=== PATIENT | male | born 1975 | race Caucasian/White ===

== ENCOUNTER 2019-04-16 12:00 | Outpatient (CLI) | payer OTHER, SELFPAY | END 2019-04-16 12:01 | disposition home or self-care (01) | LOC: SLEEP 04-18 09:11 | PROVIDERS: Visit Provider Internal Medicine | DX: G47.33 Obstructive sleep apnea (adult) (pediatric) (principal) | CPT/HCPCS: G0399 ==

== ENCOUNTER 2019-04-30 10:21 | Day surgery (SDC) | payer OTHER, SELFPAY ==
[2019-04-29 09:29] VITALS: BMI 32.4
--- NOTE | 2019-04-30 10:39 | ANES.PREANE2 ---
Pre-Anesthetic Assessment Pre-Anesthetic Assessment: Height/Weight: Height 1.7 m Weight 93.894 kg Preop Diagnosis: Anorectal pain Proposed Procedure: Operation Date: 04/30/19 11:45 Proposed Procedures p Colonoscopy 50682 Z12.11(Not Applicable) - Richard Torres MD Last Intake: 20:00 Social: Packs per day: 1.5 Pack years: 50+ Exam: Pre-Anes Outpt Exam: alert, oriented x 3, clear to auscultation bilaterally and regular rate & rhythm Airway: Submandibular: WNL Cervical ROM: WNL MP: 1 Additional comments: very poor Pulmonary: Comments: SOB CV/HEM: CV/HEM: HTN Comments: borderline : Comments: frequency GI: GI: GERD Musc/skel: Musc/skel: Lower Back Pain Comments: left radiculopathy Neuropsych: Neuropsych: Depression and [place] Comments: migraine +today Anesthetic Plan: ASA status: III Anesthesia: MAC PFSH Anesthesia PFSH: Social History Smoking and tobacco status: current every day smoker cigarettes Packs smoked per day: 1 Second hand smoke exposure: Yes Alcohol intake: never Adopted: No Caregiver/support person: No Lives independently: Yes Household members: spouse Marital status: Current occupational status: employed History of recent travel: No Data Anesthesia Cardiac Studies: No Data to Display
[2019-04-30 11:11] VITALS: BP 124/87; PULSE 62; RESP 18; TEMP 36.4; O2SAT 97
[2019-04-30] MEDS: sodium chloride 0.9% 1,000 ML 30 ML (11:16)
--- NOTE | 2019-04-30 11:28 | PM.HPUD ---
H&P update H&P Update: DATE OF SURGERY/PROCEDURE: 04/30/19 DATE H&P PERFORMED: 04/23/19 H&P UPDATE INFORMATION: H&P completed within last 30 days and No changes to prior documentation PREOP DIAGNOSIS: Anorectal pain PLANNED PROCEDURE: Operation Date: 04/30/19 11:45 Proposed Procedures p Colonoscopy 71565 Z12.11(Not Applicable) - Richard Torres MD Full H&P Perinent History: Medical/Surgical History: Medical History (Updated 04/24/19 @ 17:03 by Richard Torres MD) Depression (Acute) Migraines (Acute) Screen for colon cancer (Acute) Family History: Family History (Updated 04/22/19 @ 09:38 by Lexi Gray RN) Father Hyperlipidemia Hypertension Grandfather Diabetes Hypertension Stroke Denies family history of Anesthesia complication Bleeding disorder Social History: Social History Smoking and tobacco status: current every day smoker cigarettes Packs smoked per day: 1 Second hand smoke exposure: Yes Alcohol intake: never Adopted: No Caregiver/support person: No Lives independently: Yes Household members: spouse Marital status: Current occupational status: employed History of recent travel: No
[2019-04-30 13:15] VITALS: BP 105/63; PULSE 70; RESP 16; TEMP 36.8; O2SAT 95
[2019-04-30 13:26] VITALS: BP 111/65; PULSE 63; RESP 18; O2SAT 97
--- NOTE | 2019-04-30 13:28 | ANE.PACU2 ---
 Inpatient post-anesthesia follow up: Airway intact: Yes Vital signs: Temperature 98.2 F Pulse Rate 63 Respiratory Rate 18 Blood Pressure 111/65 Pulse Oximetry 97 Oxygen Delivery Me thod Room Air Oxygen Flow Rate 3.0 Fraction of Inspir ed Oxygen Hydration adequate: Yes Nausea and vomiting: No Pain level: 1 Mental status: Baseline
== END 2019-04-30 13:45 | disposition home or self-care (01) ==
PROVIDERS: PCP Internal Medicine; Visit Provider Surgery
PROC: 0DJD8ZZ Inspection of Lower Intestinal Tract, Via Natural or Artificial Opening Endoscopic (ICD-10-PCS; CPT 45378; principal; 2019-04-30 11:45)
DX: K62.89 Other specified diseases of anus and rectum (principal); D12.8 Benign neoplasm of rectum; K57.30 Diverticulosis of large intestine without perforation or abscess without bleeding; Z82.49 Family history of ischemic heart disease and other diseases of the circulatory system; Z83.3 Family history of diabetes mellitus; Z79.82 Long term (current) use of aspirin; F17.210 Nicotine dependence, cigarettes, uncomplicated; I10 Essential (primary) hypertension; K21.9 Gastro-esophageal reflux disease without esophagitis
CPT/HCPCS: 12345; 45380; 88305; J2704; J7030

== ENCOUNTER 2019-08-05 20:00 | Outpatient (CLI) | payer OTHER, SELFPAY | END 2019-08-05 20:01 | disposition home or self-care (01) | LOC: SLEEP 08-06 13:11 | PROVIDERS: PCP Internal Medicine; Visit Provider Nurse Practitioner Family | DX: G47.33 Obstructive sleep apnea (adult) (pediatric) (principal) | CPT/HCPCS: 95810; 95811 ==

== ENCOUNTER 2020-01-14 15:29 | Outpatient (CLI) | payer OTHER, SELFPAY ==
--- NOTE | 2020-01-14 15:45 | XR_ITS ---
WS: [id number] CHEST 2 VIEWS HISTORY: HEMOPTYSIS COMPARISON: 12/11/2018 Lungs: Benign granuloma LEFT lung base. No pneumonia. Normal vasculature. Focal area of scar or atele ctasis at the lingula. On the lateral projection is a 6 mm nodule in the retrosternal airspace. Cardiac size: Normal. Mediastinum/Aorta: Normal mediastinum. Bones: Normal. XR/XR chest 2V* [id number] IMPRESSION: 1. 6 mm nodule seen in the retrosternal airspace on the lateral projection. Re commend follow-up chest CT with IV contrast to exclude pulmonary nodule. 2. Subsegmental linear atelectasis or scar at the lingula.
== END 2020-01-14 15:30 | disposition home or self-care (01) ==
PROVIDERS: PCP Internal Medicine; Visit Provider Internal Medicine
DX: R04.2 Hemoptysis (principal)
CPT/HCPCS: 71046

== ENCOUNTER 2020-01-20 10:04 | Outpatient (CLI) | payer OTHER, SELFPAY ==
--- NOTE | 2020-01-20 10:08 | CT_ITS ---
WS: [id number] CT CHEST TECHNIQUE: Contrast enhanced CT of the chest with coronal and sagittal reformatted images. CLINICAL INFORMATION: LUNG NODULE COMPARISON: Radiograph January 14, 2020 DLP: 943.[address] scans at [facility] use at least one of these dose optimization techniques: automat ed exposure control; mA and/or kV adjustment per patient size (includes targeted exams where dose is matched to clinical indication); or iterative reconstruction. FINDINGS: Calcified granuloma corresponds to the anterior substernal opacity seen on the chest radiograph. Antonio tional calcified granulomas in both lungs. Mild chronic emphysematous changes. No acute pulmonary inf iltrates. 3 mm noncalcified nodule in the super segment left lower lobe. 2 additional tiny noncalcified nodules in the right upper lobe anteriorly measuring 2 to 3 mm. Slight atelectasis in the lung bases. No mediastinal or hilar lymphadenopathy. No axillary lymphadenopathy. Mild diffuse fatty infiltration of the liver. Tiny hepatic cyst in the dome of the liver. Normal GE j unction. Adrenal glands are normal. Normal visualized thoracic spine. CT/CT chest w con* [id number] IMPRESSION: 1. Calcified granuloma corresponds to the opacity seen on the radiograph subst ernal location. 2. A few tiny noncalcified nodules in both lungs described above. Recommend 12 month follow-up. Largest measures approximately 3 mm. 3. No mediastinal or hilar lymphadenopathy. 4. Mild diffuse fatty infiltration of the liver.
[2020-01-20] MEDS: iohexol 300 mg/mL 100 mL Btl IV (10:54)
== END 2020-01-20 10:05 | disposition home or self-care (01) ==
LOC: RADWPI 10:06
PROVIDERS: Family Provider Internal Medicine; PCP Internal Medicine; Visit Provider Nurse Practitioner Family
DX: R91.8 Other nonspecific abnormal finding of lung field (principal); K76.0 Fatty (change of) liver, not elsewhere classified
CPT/HCPCS: 71260; Q9967

== ENCOUNTER → 2020-09-02 08:10 | Outpatient (BNVA) | payer OTHER, SELFPAY | PROVIDERS: Family Provider Internal Medicine; PCP Internal Medicine; Visit Provider Family Medicine | DX: Z01.812 Encounter for preprocedural laboratory examination (principal); Z20.822 Contact with and (suspected) exposure to COVID-19 | CPT/HCPCS: 87635 ==

== ENCOUNTER 2020-09-08 08:13 | Outpatient (CLI) | payer OTHER, SELFPAY ==
--- NOTE | 2020-09-08 08:53 | PFTS_ITS ---
Date of Study:09/08/20 Date of Dictation: 09/14/20 MECHANICS: Pre bronchodilator Forced vital capacity (FVC) is normal . Pre bronchodilator Forced expiratory volume in one second (FEV1) is normal. FEV1/FVC is normal. There is no post bronchodialator study. FLOW VOLUME LOOP: severe sloping of expiratory limb suggestive of severe airway obstruction . LUNG VOLUMES: Total lung capacity (TLC) is increased . Very high Residual volume (RV) suggestive of severe air trapping. DIFFUSING CAPACITY FOR CARBON MONOXIDE: mildly reduced 31% . INTERPRETATION: The Spirometry is normal but lung volumes are significantly high indirectly suggesting of obstructive ventilatory disease. There is mild gas trasnfer defect. Clinical correlation recommended. MTDD
== END 2020-09-08 08:14 | disposition home or self-care (01) ==
LOC: RT 08:15
PROVIDERS: PCP Family Medicine; Visit Provider Family Medicine
DX: J44.9 Chronic obstructive pulmonary disease, unspecified (principal)
CPT/HCPCS: 94010; 94726; 94729

== ENCOUNTER 2020-10-04 08:10 | Emergency (ER) | payer OTHER, SELFPAY ==
[2020-10-04] VITALS (7 sets, daily range): BP systolic 119–149; BP diastolic 79–98; PULSE 75–102; RESP 14–19; TEMP 36.8; O2SAT 95–98; BMI 34.1
--- NOTE | 2020-10-04 | XRR_ITS ---
[facility] Final Radiology Report Call: [phone] assistance Online chat: [email or web address] Name: JOHAN HENNING Age: 45Years M Date: 10/04/2020 SSN: -- : 1975 Study: XR CHEST 2 VIEWS Requesting Physician: Elidia Elias Images: 2 Add?l Studies: Provided Clinical History: PROCEDURE INFORMATION: Exam: XR Chest Exam date and time: 10/04/2020 8:55 AM Age: 45 years old Clinical indication: Shortness of breath; Patient HX: Chest pain, SOB, dizziness starting this morning to now. TECHNIQUE: Imaging protocol: XR of the chest. Views: Frontal and lateral upright, 2 views. COMPARISON: CT chest w con* [id number] 01/20/2020 10:43 AM FINDINGS: Lungs: Right medial upper lobe calcified pulmonary parenchymal granuloma. Mild left lateral basilar subsegmental atelectasis. The lungs are otherwise peripherally clear bilaterally. The pulmonary vasculature is normal. Pleural spaces: No pleural effusion. No pneumothorax. Heart/Mediastinum: The heart is normal in size and contour. Bones/joints: Degenerative disk disease is present at mid-upper thoracic spine disk levels. IMPRESSION: 1. Mild left lateral basilar subsegmental atelectasis. 2. No acute cardiopulmonary abnormality identified. Thank you for allowing us to participate in the care of your patient. Dictated and Authenticated by: Anderson Cassidy MD 10/04/2020 1:20 PM Central Time ([place] & [place]) MERARY
--- NOTE | 2020-10-04 08:27 | ECG_ITS ---
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 Measurements Intervals [place] Rate: 105 P: 59 [place]: 141 QRS: -23 QRSD: 93 T: 42 QT: 337 QTc: 446 Interpretive Statements SINUS TACHYCARDIA INDETERMINATE AXIS Compared to ECG 12/11/2018 11:35:59 Indeterminate axis now present Sinus bradycardia no longer present T-wave abnormality no longer present Electronically Signed On 10-04-2020 18:10:01 CDT by Deep Link M.D. [id number]
[2020-10-04 09:58] LABS: Basophils # 0.1 10^3/uL (0.0-0.1); Basophils % 0.6 %; Eosinophils # 0.2 10^3/uL (0.0-0.8); Eosinophils % 2.5 %; Hemoglobin 14.8 g/dL (11.7-16.6); Lymphocytes # 2.5 10^3/uL (0.8-4.8); Lymphocytes % 30.3 %; Mean Corpuscular HGB Conc 33.6 g/dL (30.0-36.0); Mean Corpuscular Hemoglobin 30.8 pg (28.0-34.0); Mean Corpuscular Volume 91.5 fL (80-94); Mean Platelet Volume 9.5 fL (7.4-10.4); Monocytes # 0.6 10^3/uL (0.2-0.9); Monocytes % 7.3 %; Neutrophils # 4.86 10^3/uL (1.8-7.7); Neutrophils % 58.9 %; Nucleated Red Blood Cells % 0 %; Platelet Count 241 10^3/cmm (130-400); Red Blood Count 4.81 10^6/uL (4.1-5.3); Red Cell Distribution Width 12.2 % (12.1-15.1); White Blood Count 8.3 10^3/uL (4.0-10.0)
[2020-10-04 10:17] LABS: Troponin(5th) Baseline 6 ng/L (0-15)
--- NOTE | 2020-10-04 10:17 | PC.PHAR ---
pt states he takes care of his own medications-[facility] lipitor 10mg from from 07/27/20-pt states he wasnt aware he had that medication called in -pt states he hasnt had lexapro for months-[facility] 30d[facility]s
--- NOTE | 2020-10-04 10:21 | W.ED.CHESTPA ---
HPI - Chest Pain General: Chief Complaint: Chest Pain Stated Complaint: Chest Pain Time Seen by Provider: 10/04/20 09:28 History of Present Illness: HPI narrative: 45-year-old male presents emergency room with left chest pain radiating to his back and arms occurring for last couple of days worse today while he was at work he has associated shortness of breath with it he describes a squeezing type sensation in his chest. MD complaint: chest pain Pertinent past history: coronary artery disease Onset (ago): minute(s) Timing of current episode: episodic Prior episodes: Yes Onset: during rest and during exertion Pain location: left chest Pain radiation: none Severity: mild Quality: heaviness Relieving factors: nothing Exacerbating factors: nothing Associated symptoms: Reports dyspnea and nausea; Deny abdominal pain, diaphoresis, fever(s), leg edema, palpitations, sense of impending doom, syncope or vomiting Treatment prior to arrival: none Review of Systems Const: Denies: fever(s) or diaphoresis ENMT: Denies: throat pain, ear or mastoid pain, nasal discharge or nasal congestion Card: Denies: palpitations or syncope Resp: Reports: dyspnea GI: Reports: nausea; Denies: abdominal pain or vomiting : Denies: flank pain, dysuria, urinary frequency or urinary urgency Skin/Breast: Denies: rash or pruritus PFSH ED PFSH: Medical History (Updated 10/04/20 @ 13:13 by Cody Priest DO) Depression Migraines Screen for colon cancer Surgical History History of hernia surgery left and right groin hernias Family History Father Hyperlipidemia Hypertension Grandfather Diabetes Hypertension Stroke Denies family history of Anesthesia complication Bleeding disorder Social History Smoking and tobacco status: current every day smoker cigarettes Packs smoked per day: 1 Second hand smoke exposure: Yes Alcohol intake: never Adopted: No Caregiver/support person: No Lives independently: Yes Household members: spouse Marital status: Current occupational status: employed History of recent travel: No Physical Exam Const: COMMON NORMALS: no acute distress GENERAL APPEARANCE: cooperative and comfortable ORIENTATION/CONSCIOUSNESS: Yes oriented to person, Yes oriented to place and Yes oriented to time HENMT: COMMON NORMALS: normocephalic, atraumatic, hearing grossly normal bilaterally and external ears normal HEAD & SCALP: normocephalic and atraumatic EXTERNAL EAR: Yes external ears normal Neck/C-Spine: COMMON NORMALS: no JVD Resp: COMMON NORMALS: normal respiratory effort, No retractions, No use of accessory muscles and clear to auscultation bilaterally AUSCULTATION: clear to auscultation bilaterally Cardio: COMMON NORMALS: no JVD, regular rate, regular rhythm and No murmurs present (Cardio) RATE: regular rate RHYTHM: regular rhythm GI: COMMON NORMALS: Soft to palpation and No hepatosplenomegaly present AUSCULTATION: Yes normoactive bowel sounds PALPATION: Yes Soft to palpation, No Tenderness to palpation present (GI), No Guarding due to palpation present (GI) and Yes No hepatosplenomegaly present Extremity: COMMON NORMALS: normal to inspection, capillary refill normal, no clubbing, cyanosis or edema, no calf tenderness and no pedal edema Neuro: SENSORIUM/ORIENTATION: Yes oriented to person, Yes oriented to place and Yes oriented to time Skin: COMMON NORMALS: no rashes or lesions noted GENERAL SKIN EXAM: no rashes or lesions noted Course Vital Signs: Vital signs: Vital Signs Temperature 98.2 F 10/04/20 08:20 Pulse Rate 84 10/04/20 13:28 Respiratory Rate 19 H 10/04/20 13:28 Blood Pressure 149/85 10/04/20 13:28 Pulse Oximetry 96 10/04/20 13:28 MDM - Chest Pain MDM Narrative: Medical decision making narrative: He has had these symptoms for couple of days now. He refers to a previous stress test he had done I am not sure it was actually cardiac but I cannot find 1 in the records here working to set him up for a graded exercise stress test ominous start him on metoprolol 25 once daily its cardioprotective will also should help with lower blood pressure additionally have him take a baby aspirin if he has any recurrence of symptoms return to the emergency room. Patient's will contact him to set up an outpatient stress test Lab Data: Labs: Lab Results 10/04/20 10/04/20 10/04/20 Range/Units 09:45 09:45 09:45 WBC 8.3 (4.0-10.0) 10^3/ uL RBC 4.81 (4.1-5.3) 10^6/u L Hgb 14.8 (11.7-16.6) g/dL Hct 44.0 (42.0-52.0) % MCV 91.5 (80-94) fL MCH 30.8 (28.0-34.0) pg MCHC 33.6 (30.0-36.0) g/dL RDW 12.2 (12.1-15.1) % Plt Count 241 (130-400) 10^3/c mm MPV 9.5 (7.4-10.4) fL Neut % (Auto) 58.9 % Lymph % (Auto) 30.3 % Bonner % (Auto) 7.3 % Eos % (Auto) 2.5 % Baso % (Auto) 0.6 % Neut # (Auto) 4.86 (1.8-7.7) 10^3/u L Lymph # (Auto) 2.5 (0.8-4.8) 10^3/u L Bonner # (Auto) 0.6 (0.2-0.9) 10^3/u L Eos # (Auto) 0.2 (0.0-0.8) 10^3/u L Baso # (Auto) 0.1 (0.0-0.1) 10^3/u L Nucleated RBC % (a uto) 0 % Nucleated RBCs # 0.0 /100WBC Sodium 142 (136-145) mmol/L Potassium 4.9 (3.5-5.1) mmol/L Chloride 105 (98-107) mmol/L Carbon Dioxide 27 (22-29) mmol/L Anion Gap 14.9 (5-19) BUN 14 (6-20) mg/dL Creatinine 0.9 (0.7-1.2) mg/dL GFR Calculation 90.4 (90-130) mL/min Glucose 97 (65-115) mg/dL Calculated Osmolal ity 294 (285-295) mOsm/k g Calcium 9.2 (8.5-10.5) mg/dL Total Bilirubin 0.2 (0.15-1.2) mg/dL AST 19 (0-40) U/L ALT 43 H (0-41) U/L Alkaline Phosphata se 67 (40-130) IU/L Troponin T Baselin e 6 (0-15) ng/L Troponin T 120 Min trudy (0-15) ng/L Delta Troponin T (0-10) ABS# Total Protein 6.4 L (6.6-8.7) g/dL Albumin 4.4 (3.5-5.2) g/dL Globulin 2.0 (1.3-4.6) g/dL Lipase 18 (13-60) U/L 10/04/20 Range/Units 12:00 WBC (4.0-10.0) 10^3/ uL RBC (4.1-5.3) 10^6/u L Hgb (11.7-16.6) g/dL Hct (42.0-52.0) % MCV (80-94) fL MCH (28.0-34.0) pg MCHC (30.0-36.0) g/dL RDW (12.1-15.1) % Plt Count (130-400) 10^3/c mm MPV (7.4-10.4) fL Neut % (Auto) % Lymph % (Auto) % Bonner % (Auto) % Eos % (Auto) % Baso % (Auto) % Neut # (Auto) (1.8-7.7) 10^3/u L Lymph # (Auto) (0.8-4.8) 10^3/u L Bonner # (Auto) (0.2-0.9) 10^3/u L Eos # (Auto) (0.0-0.8) 10^3/u L Baso # (Auto) (0.0-0.1) 10^3/u L Nucleated RBC % (a uto) % Nucleated RBCs # /100WBC Sodium (136-145) mmol/L Potassium (3.5-5.1) mmol/L Chloride (98-107) mmol/L Carbon Dioxide (22-29) mmol/L Anion Gap (5-19) BUN (6-20) mg/dL Creatinine (0.7-1.2) mg/dL GFR Calculation (90-130) mL/min Glucose (65-115) mg/dL Calculated Osmolal ity (285-295) mOsm/k g Calcium (8.5-10.5) mg/dL Total Bilirubin (0.15-1.2) mg/dL AST (0-40) U/L ALT (0-41) U/L Alkaline Phosphata se (40-130) IU/L Troponin T Baselin e (0-15) ng/L Troponin T 120 Min trudy 6.00 (0-15) ng/L Delta Troponin T 0 (0-10) ABS# Total Protein (6.6-8.7) g/dL Albumin (3.5-5.2) g/dL Globulin (1.3-4.6) g/dL Lipase (13-60) U/L Discharge Plan Discharge Patient Disposition: Home Clinical Impression: Atypical chest pain, HTN (hypertension) Condition: Stable Prescriptions: New Toprol XL 25 mg tablet extended release 24 hr 12.5 mg PO DAILY Qty: 15 RF: 0 aspirin 81 mg tablet,delayed release (DR/EC) 81 mg PO DAILY Qty: 30 RF: 0 No Action Tylenol Extra Strength 500 mg Tablet 1,000 mg PO PRN RF: 0 Acid Veterinary Surgery Technologist (omeprazole) 20 mg Capsule,Delayed Release(Dr/Ec) 20 mg PO DAILY RF: 0 Discharge Orders: Discharge ED (Routine); Ordered 10/04/20 Ordered By: Cody Priest Referrals: Pepito Melendez MD [Primary Care Provider] - Discharge Diet: Usual diet Discharge Activity: Limit activity as instructed Patient Instructions: Opioid Safety Activity Restrictions/Additional Instructions: No strenuous activity until after your stress test is completed. Case management will call to follow-up with the stress test. If you have recurrent symptoms return. Coding Level of Care Code ED Celebrity Chef Entrepreneur Media Personality for Dilip Fwd Exam Comprehensive
[2020-10-04 10:23] LABS: Alanine Aminotransferase 43 U/L (0-41); Albumin Level 4.4 g/dL (3.5-5.2); Alkaline Phosphatase 67 IU/L (40-130); Anion Gap 14.9 (5-19); Aspartate Amino Transferase 19 U/L (0-40); Blood Urea Nitrogen 14 mg/dL (6-20); Calcium 9.2 mg/dL (8.5-10.5); Carbon Dioxide 27 mmol/L (22-29); Chloride 105 mmol/L (98-107); Glomerular Filtration Rate 90.4 mL/min (90-130); Glucose 97 mg/dL (65-115); Lipase 18 U/L (13-60); Osmolality Calculated 294 mOsm/kg (285-295); Potassium 4.9 mmol/L (3.5-5.1); Sodium 142 mmol/L (136-145); Total Bilirubin 0.2 mg/dL (0.15-1.2); Total Protein 6.4 g/dL (6.6-8.7)
--- NOTE | 2020-10-04 10:23 | PC.NURSE ---
PATIENT ARRIVED TO ROOM AT 920.
--- NOTE | 2020-10-04 10:27 | ECG_ITS ---
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 Measurements Intervals [place] Rate: 80 P: 45 NC: 145 QRS: 0 QRSD: 89 T: 62 QT: 336 QTc: 389 Interpretive Statements SINUS RHYTHM INDETERMINATE AXIS NONSPECIFIC T-WAVE ABNORMALITY Compared to ECG 12/11/2018 11:35:59 Indeterminate axis now present Sinus bradycardia no longer present T-wave abnormality still present Electronically Signed On 10-04-2020 18:12:07 CDT by Deep Link M.D. [id number]
[2020-10-04 13:00] LABS: Troponin 5 2HR Delta 0 ABS# (0-10)
--- NOTE | 2020-10-05 09:13 | DCPLANNER ---
oil well drilling manager had message to schedule an outpatient stress test for patient. oil well drilling manager faxed signed order to centralized scheduling, will call for appointment information.
--- NOTE | 2020-10-13 13:05 | DCPLANNER ---
Centralized scheduling called to schedule stress test for patient, when scheduling spoke with patient, he stated that he did not want to schedule at this time. Patient wanted to wait and see his primary care physician.
== END 2020-10-04 13:29 | disposition home or self-care (01) ==
PROVIDERS: Registered Nurse; Emergency Provider Family Medicine; PCP Family Medicine
DX: R07.89 Other chest pain (principal); I10 Essential (primary) hypertension; F17.210 Nicotine dependence, cigarettes, uncomplicated
CPT/HCPCS: 36415; 71046; 80053; 83690; 84484; 85025; 93005; 99284

== ENCOUNTER → 2021-01-26 09:32 | Outpatient (BNVA) | payer OTHER, SELFPAY | PROVIDERS: PCP Family Medicine; Visit Provider Nurse Practitioner Family | DX: Z20.822 Contact with and (suspected) exposure to COVID-19 (principal) | CPT/HCPCS: 87635 ==

== ENCOUNTER 2023-07-16 09:39 | Emergency (ER) | payer OTHER, SELFPAY ==
[2023-07-16 09:42] VITALS: BP 147/95; PULSE 78; RESP 16; TEMP 36.7; O2SAT 100; BMI 31.0
--- NOTE | 2023-07-16 09:54 | ED_ITS ---
HPI - Abdominal Pain General: Chief Complaint: Abdominal Pain Stated Complaint: abd pain Time Seen by Provider: 07/16/23 09:40 [facility] ED PFSH: Medical History (Updated 10/12/20 @ 00:01 by CODIE Chairez) Screen for colon cancer Depression Migraines Surgical History History of hernia surgery left and right groin hernias Family History Father Hyperlipidemia Hypertension Grandfather Diabetes Hypertension Stroke Denies family history of Anesthesia complication Bleeding disorder Social History Smoking and tobacco/nicotine status: current every day tobacco/nicotine user cigarettes Packs smoked per day: 1 Second hand smoke exposure: Yes Alcohol intake: never Substance/Drug Use: never Adopted: No Caregiver/support person: No Lives independently: Yes Household members: spouse Marital status: Current occupational status: employed Course Vital Signs: Vital signs: Vital Signs Temperature 98.0 F 07/16/23 09:42 Pulse Rate 78 07/16/23 09:42 Respiratory Rate 16 07/16/23 09:42 Blood Pressure 147/95 07/16/23 09:42 Pulse Oximetry 100 07/16/23 09:42 Oxygen Delivery Me thod Room Air 07/16/23 09:42 Discharge Plan Discharge Condition: Stable Prescriptions: No Action Tylenol Extra Strength 500 mg Tablet 1,000 mg PO PRN Acid Hatchery Worker (omeprazole) 20 mg Capsule,Delayed Release(Dr/Ec) 20 mg PO DAILY Toprol XL 25 mg tablet extended release 24 hr 12.5 mg PO DAILY Qty: 15 0RF aspirin 81 mg tablet,delayed release (DR/EC) 81 mg PO DAILY Qty: 30 0RF Referrals: Pepito Melendez MD [Primary Care Provider] - Coding Level of Care Code ED Senior Billing Consultant for Dilip Heart
[2023-07-16 10:06] LABS: Basophils # 0.1 10^3/uL (0.0-0.1); Basophils % 0.6 %; Eosinophils # 0.3 10^3/uL (0.0-0.8); Eosinophils % 4.1 %; Lymphocytes # 2.3 10^3/uL (0.8-4.8); Lymphocytes % 29.9 %; Mean Corpuscular HGB Conc 33.7 g/dL (30-55); Mean Corpuscular Hemoglobin 30.9 pg (27-33); Mean Corpuscular Volume 91.7 fl (82-101); Mean Platelet Volume 9.5 fL (7.4-10.4); Monocytes # 0.5 10^3/uL (0.2-0.9); Monocytes % 6.1 %; Neutrophils # 4.61 10^3/uL (1.8-7.7); Neutrophils % 58.9 %; Nucleated Red Blood Cells % 0 %; Platelet Count 229 10^3/cmm (157-399); Red Blood Count 4.69 10^6/uL (3.85-5.65); Red Cell Distribution Width 12.6 % (12.1-15.1); White Blood Count 7.83 10^3/uL (3.29-11.43)
[2023-07-16 10:23] LABS: Alanine Aminotransferase 21 U/L (0-41); Albumin Level 4.3 g/dL (3.5-5.2); Alkaline Phosphatase 67 U/L (40-130); Anion Gap 12.4 (5-19); Aspartate Amino Transferase 18 U/L (0-40); Blood Urea Nitrogen 17 mg/dL (6-20); Carbon Dioxide 28 mmol/L (22-29); Chloride 105 mmol/L (98-107); Creatinine Clr Calc Pharmacy 104.9783; Globulin 2.7 g/dL (1.3-4.6); Glomerular Filtration Rate 89.3 mL/min (90-130); Glucose 95 mg/dL (65-115); Lipase 16 U/L (13-60); Osmolality Calculated 293 mOsm/kg (285-295); Potassium 4.4 mmol/L (3.5-5.1); Sodium 141 mmol/L (136-145); Total Bilirubin 0.2 mg/dL (0.15-1.2)
[2023-07-16 10:31] LABS: Add Urine Microscopic? YES; Bilirubin Urine Neg (Negative); Blood Urine Trace (Negative); Glucose Urine UA Norm (Normal); Ketones Urine Negative (Negative); Leukocyte Esterase Urine Negative (Negative); Nitrate Urine Negative (Negative); Protein Urine Neg (Negative); Specific Gravity, Urine 1.015 (1.005-1.030); Urine Appearance SL Hazy (CLEAR); Urine Color Yellow (Yellow); Urobilinogen Urine Norm (Negative); pH Urine 5 (5-7)
[2023-07-16 10:32] LABS: Add Urine Culture? No; Bacteria Urine TRACE /hpf; Mucus Urine TRACE /hpf; RBC Urine 0-4 /hpf (0-2); Squamous Epithelial Cell Urine 0-4 /hpf (0-5); WBC Urine 0-4 /hpf (0-5)
--- NOTE | 2023-07-16 10:50 | ED_ITS ---
HPI - Abdominal Pain 2 General: Chief Complaint: Abdominal Pain Stated Complaint: abd pain Time Seen by Provider: 07/16/23 09:40 Source: patient Mode of arrival: ambulatory History of Present Illness: 48-year-old male presents emergency room with complaint of abdominal pain. Abdominal pain has been going on for couple of days. He has a small umbilical hernia is noticed. He says he gets pain with activities. He is complaining of severe pain now he denies any nausea vomiting or diarrhea no dysuria urgency or frequency no hematochezia melena hematemesis coffee-ground emesis. MD elicited complaint: abdominal pain Exacerbating factors: nothing Relieving factors: nothing Associated Symptoms: Reports bloating and poor appetite; Denies anorexia, belching, change in bowel habits, change in stool character, chills, coffee ground emesis, constipation, GI cramping, diarrhea, dyspepsia, dysuria, excessive flatus, fever(s), heartburn, hematochezia, hematuria, hematemesis, fecal incontinence, loose stools, melena, nausea, syncope and vomiting Review of Systems 2 Const: Denies: fever(s) or chills Card: Denies: chest pain or syncope Resp: Denies: dyspnea GI: Reports: abdominal pain and bloating; Denies: nausea, vomiting, hematemesis, coffee ground emesis, heartburn, diarrhea, constipation, GI cramping, belching, excessive flatus, fecal incontinence, change in bowel habits, change in stool character, hematochezia or melena : Denies: dysuria, urinary frequency, urinary urgency or hematuria Musc: Denies: neck pain or back pain Skin/Breast: Denies: rash PFSH ED 2 PFSH: Medical History Screen for colon cancer Depression Migraines Surgical History History of hernia surgery left and right groin hernias Family History Father Hyperlipidemia Hypertension Grandfather Diabetes Hypertension Stroke Denies family history of Anesthesia complication Bleeding disorder Social History Smoking and tobacco/nicotine status: current every day tobacco/nicotine user cigarettes Packs smoked per day: 1 Second hand smoke exposure: Yes Alcohol intake: never Substance/Drug Use: never Adopted: No Caregiver/support person: No Lives independently: Yes Household members: spouse Marital status: Current occupational status: employed Physical Exam 2 Const: COMMON NORMALS: no acute distress GENERAL APPEARANCE: cooperative and comfortable ORIENTATION/CONSCIOUSNESS: Yes awake, Yes oriented to person, Yes oriented to place and Yes oriented to time HENMT: COMMON NORMALS: normocephalic, atraumatic and hearing grossly normal bilaterally HEAD & SCALP: normocephalic and atraumatic Resp: COMMON NORMALS: normal respiratory effort, No retractions, No use of accessory muscles and clear to auscultation bilaterally AUSCULTATION: clear to auscultation bilaterally Cardio: COMMON NORMALS: regular rate, regular rhythm and No murmurs present (Cardio) RATE: regular rate RHYTHM: regular rhythm GI: COMMON NORMALS: No hepatosplenomegaly present AUSCULTATION: Yes normoactive bowel sounds PALPATION: Yes Tenderness to palpation present (GI) (Umbilical tenderness with an easily reducible umbilical hernia), No Guarding due to palpation present (GI) and Yes No hepatosplenomegaly present Extremity: COMMON NORMALS: normal to inspection, capillary refill normal, no clubbing, cyanosis or edema, no calf tenderness and no pedal edema Neuro: SENSORIUM/ORIENTATION: Yes oriented to person, Yes oriented to place and Yes oriented to time Skin: COMMON NORMALS: no rashes or lesions noted GENERAL SKIN EXAM: no rashes or lesions noted Course 2 Vital Signs: Vital signs: Vital Signs Temperature 98.0 F 07/16/23 09:42 Pulse Rate 83 07/16/23 12:04 Respiratory Rate 18 07/16/23 12:04 Blood Pressure 160/90 07/16/23 11:50 Pulse Oximetry 100 07/16/23 12:04 Oxygen Delivery Me thod Room Air 07/16/23 10:57 MDM - Abdominal Pain Medical Decision Making CT shows umbilical hernia with some fat stranding no obstruction. Hernia is easily reducible. Will discharge the patient home encouraged light duty no heavy lifting follow-up with general surgery for definitive treatment. Pain and nausea medications prescribed. Medical Records I reviewed the patient's medical records. Lab Data I reviewed the patient's lab results. 07/16/23 10:00 07/16/23 10:00 Labs/Radiology: Laboratory Results WBC 7.83 10^3/uL (3.29-11.43) 07/16/23 10:00 RBC 4.69 10^6/uL (3.85-5.65) 07/16/23 10:00 Hgb 14.50 g/dL (11.27-16.99) 07/16/23 10:00 Hct 43.0 % (37-53) 07/16/23 10:00 MCV 91.7 fl (82-101) 07/16/23 10:00 MCH 30.9 pg (27-33) 07/16/23 10:00 MCHC 33.7 g/dL (30-55) 07/16/23 10:00 RDW 12.6 % (12.1-15.1) 07/16/23 10:00 Plt Count 229 10^3/cmm (157-399) 07/16/23 10:00 MPV 9.5 fL (7.4-10.4) 07/16/23 10:00 Neut % (Auto) 58.9 % 07/16/23 10:00 Lymph % (Auto) 29.9 % 07/16/23 10:00 [place] % (Auto) 6.1 % 07/16/23 10:00 Eos % (Auto) 4.1 % 07/16/23 10:00 Baso % (Auto) 0.6 % 07/16/23 10:00 Neut # (Auto) 4.61 10^3/uL (1.8-7.7) 07/16/23 10:00 Lymph # (Auto) 2.3 10^3/uL (0.8-4.8) 07/16/23 10:00 [place] # (Auto) 0.5 10^3/uL (0.2-0.9) 07/16/23 10:00 Eos # (Auto) 0.3 10^3/uL (0.0-0.8) 07/16/23 10:00 Baso # (Auto) 0.1 10^3/uL (0.0-0.1) 07/16/23 10:00 Nucleated RBC % (auto) 0 % 07/16/23 10:00 Nucleated RBCs # 0.0 /100WBC 07/16/23 10:00 Sodium 141 mmol/L (136-145) 07/16/23 10:00 Potassium 4.4 mmol/L (3.5-5.1) 07/16/23 10:00 Chloride 105 mmol/L (98-107) 07/16/23 10:00 Carbon Dioxide 28 mmol/L (22-29) 07/16/23 10:00 Anion Gap 12.4 (5-19) 07/16/23 10:00 BUN 17 mg/dL (6-20) 07/16/23 10:00 Creatinine 0.9 mg/dL (0.7-1.2) 07/16/23 10:00 GFR Calculation 89.3 mL/min (90-130) L 07/16/23 10:00 Glucose 95 mg/dL (65-115) 07/16/23 10:00 Calculated Osmolality 293 mOsm/kg (285-295) 07/16/23 10:00 Calcium 9.0 mg/dL (8.5-10.5) 07/16/23 10:00 Total Bilirubin 0.2 mg/dL (0.15-1.2) 07/16/23 10:00 AST 18 U/L (0-40) 07/16/23 10:00 ALT 21 U/L (0-41) 07/16/23 10:00 Alkaline Phosphatase 67 U/L (40-130) 07/16/23 10:00 Total Protein 7.0 g/dL (6.6-8.7) 07/16/23 10:00 Albumin 4.3 g/dL (3.5-5.2) 07/16/23 10:00 Globulin 2.7 g/dL (1.3-4.6) 07/16/23 10:00 Lipase 16 U/L (13-60) 07/16/23 10:00 Urine Color Yellow (Yellow) 07/16/23 09:55 Urine Appearance Sl hazy (CLEAR) A 07/16/23 09:55 Urine pH 5 (5-7) 07/16/23 09:55 Ur Specific [place] 1.015 (1.005-1.030) 07/16/23 09:55 Urine Protein Neg (Negative) 07/16/23 09:55 Urine Glucose (UA) Norm (Normal) 04/22/24 09:55 Urine Ketones Negative (Negative) 07/16/23 09:55 Urine Blood Trace (Negative) H 07/16/23 09:55 Urine Nitrate Negative (Negative) 07/16/23 09:55 Urine Bilirubin Neg (Negative) 07/16/23 09:55 Urine Urobilinogen Norm mg/dL (Negative) 07/16/23 09:55 Ur Leukocyte Esterase Negative (Negative) 07/16/23 09:55 Urine RBC 0-4 /hpf (0-2) H 07/16/23 09:55 Urine WBC 0-4 /hpf (0-5) H 07/16/23 09:55 Ur Squamous Epith Cells 0-4 /hpf (0-5) H 07/16/23 09:55 Amorphous Sediment Not Reportable 07/16/23 09:55 Urine Bacteria Trace /hpf (NONE) 07/16/23 09:55 Urine Mucus Trace /hpf 07/16/23 09:55 All radiology interpretation(s) finalized by discharge Discharge Plan Discharge Patient Disposition: Home Clinical Impression: Hernia, umbilical Condition: Stable Prescriptions: New promethazine 25 mg tablet 25 mg PO Q6H PRN (Reason: nausea and vomiting) Qty: 20 0RF tramadol 50 mg tablet 50 mg PO Q6H PRN (Reason: pain) Qty: 20 0RF No Action Tylenol Extra Strength 500 mg Tablet 1,000 mg PO PRN Acid Labor/Excavator (omeprazole) 20 mg Capsule,Delayed Release(Dr/Ec) 20 mg PO DAILY Toprol XL 25 mg tablet extended release 24 hr 12.5 mg PO DAILY Qty: 15 0RF aspirin 81 mg tablet,delayed release (DR/EC) 81 mg PO DAILY Qty: 30 0RF Discharge Orders: Discharge ED (Routine); Ordered 07/16/23 Ordered By: Cody Priest Referrals: Pepito Melendez MD [Primary Care Provider] - Discharge Diet: Usual diet Discharge Activity: Resume usual activity Patient Instructions: Opioid Safety, Pain Management Activity Restrictions/Additional Instructions: Thank you for choosing [facility] for your healthcare needs today. Please realize this is an emergency room and that we are providing you with a medical screening exam and this may not be complete and all inclusive of all the testing and or work up that you may need to determine your ailment or severity of your illness. It is very important that you follow up as instructed or that you return to the Emergency Department should you have concerns or if your condition changes or worsens in any way. You were seen today for abdominal pain. CT shows a buckle hernia which we are able to reduce. Case management make arrangements for you to follow-up with surgery to have this repaired. Avoid heavy lifting. You can use pain medications and nausea medications as prescribed. Coding Level of Care Code ED Disposition Clerk for [facility]
[2023-07-16 10:57] VITALS: BP 136/99; PULSE 81; RESP 18; O2SAT 99
--- NOTE | 2023-07-16 10:57 | CT_ITS ---
WS: [id number] CT ABDOMEN AND PELVIS WITH CONTRAST HISTORY: abd pain TECHNIQUE: Imaging performed of the abdomen and pelvis with IV contrast. Single phase imaging of the abdomen. Coronal and sagittal reformats are submitted. All CT scans at [facility] use at redd [address] one of these dose optimization techniques: automated exposure control; mA and/or kV adjustment per patient size (includes targeted exams where dose is matched to clinical indication); or iterative re construction. IV CONTRAST: Omnipaque 350; 100 mL IV. Oral contrast: No DLP: 711.01 mGy.cm COMPARISON: None available. Lower thorax: Calcified granuloma at the RIGHT lung base. Heart is normal size. No hiatal hernia. Liver/biliary system: Normal size with no intrahepatic dilatation. Gallbladder: Normal. No gallstones or wall thickening. No pericholecystic fluid. Pancreas: Normal size pancreas and pancreatic duct. No adjacent inflammation. Spleen: Normal size spleen. No mass or infarct. Granulomata. Adrenal glands: Normal. Right kidney: Normal. Left kidney: Normal. Aorta: Variant celiac axis. Hepatic and splenic arteries arise separately from the aorta. Lymphadenopathy: None. Free fluid: None. GI tract: Nondistended stomach. No small bowel obstruction. There is a focal very short segment mildl y prominent small bowel loop in the RIGHT lower quadrant. Numerous diverticula throughout the colon. Greatest diverticular burden in the sigmoid. No acute diverticulitis. Normal appendix. Abdominal wall: Ventral, umbilical hernia contains fat and stranding in the omental fat. No GI tract. Pelvis: No free fluid or adenopathy within the pelvis. Bones: Unremarkable. IMPRESSION: 1. Umbilical hernia containing omental fat with stranding. Due to the stranding suspect there may be a component of fat necrosis at this time. No GI tract obstruction. 2. Moderate diverticular burden in the distal colon. 3. No acute abnormalities otherwise.
[2023-07-16] MEDS: iohexol 350 mg/mL 500 mL Btl (per mL) IV (11:15)
[2023-07-16 11:50] VITALS: BP 160/90; PULSE 73
[2023-07-16 12:04] VITALS: PULSE 83; RESP 18; O2SAT 100
--- NOTE | 2023-07-17 07:48 | DCPLANNER ---
Message sent to Gen Surg
== END 2023-07-16 12:06 | disposition home or self-care (01) ==
PROVIDERS: Physician Assistant; Emergency Provider Family Medicine; PCP Family Medicine
DX: K42.9 Umbilical hernia without obstruction or gangrene (principal); Z79.82 Long term (current) use of aspirin; F17.210 Nicotine dependence, cigarettes, uncomplicated
CPT/HCPCS: 36415; 74177; 80053; 81001; 83690; 85025; 99285; Q9967

== ENCOUNTER → 2023-08-13 16:01 | Outpatient (BNVA) | payer OTHER, SELFPAY | PROVIDERS: PCP Family Medicine; Visit Provider Family Medicine | DX: R63.4 Abnormal weight loss (principal); R10.9 Unspecified abdominal pain; R91.1 Solitary pulmonary nodule; E11.9 Type 2 diabetes mellitus without complications | CPT/HCPCS: 82306; 82607; 84153; 84403; 84443; 85651; 86140; 86618; 86666; 86757 ==

== ENCOUNTER 2023-08-30 07:51 | Outpatient (CLI) | payer OTHER, SELFPAY ==
--- NOTE | 2023-08-30 08:00 | US_ITS ---
WS: [id number] RIGHT UPPER QUADRANT ULTRASOUND HISTORY: RUQ abdominal pain COMPARISON: CT abdomen 07/16/2023 Liver: 17.3 cm in length. Normal size liver and echogenicity. No bile duct dilatation or mass. Portal Vein: Normal hepatopetal flow with monophasic waveform. Gallbladder: Normally distended gallbladder. There is a gallbladder fold. No gallbladder wall thicken ing or stones. CBD: 0.3 cm Pancreas: Normal size and echogenicity. Right kidney: 9.8 cm in length. Normal size and echogenicity. No hydronephrosis or mass. Aorta and IVC: Unremarkable abdominal aorta and IVC. No ascites. US/US gall bladder [id number] IMPRESSION: Normal right upper quadrant ultrasound.
== END 2023-08-30 07:52 | disposition home or self-care (01) ==
LOC: RAD 07:52
PROVIDERS: PCP Family Medicine; Visit Provider Surgery
DX: R10.11 Right upper quadrant pain (principal)
CPT/HCPCS: 76705

== ENCOUNTER 2023-08-30 07:52 | Outpatient (CLI) | payer OTHER, SELFPAY ==
[2023-08-30] MEDS: iohexol 350 mg/mL 500 mL Btl (per mL) IV (08:46)
--- NOTE | 2023-08-30 09:00 | CT_ITS ---
WS: [id number] CT chest w con* [id number] HISTORY: follow up on lung nodule TECHNIQUE: Axial imaging performed through the thorax. Coronal and sagittal reformats are submitted. All CT scans at [facility] use at least one of these dose optimization techniques: automated exposure control; mA and/or kV adjustment per patient size (includes targeted exams where dose is mat ched to clinical indication); or iterative reconstruction. CONTRAST: Omnipaque 350; 100 mL IV. DLP: 415.42 mGy.cm COMPARISON: 01/20/2020 Lungs and central airway: Mild pulmonary hyperinflation. There is scattered granulomata. No pneumonia . There are a few scattered micronodules throughout both lungs. No new or enlarging mass. No pulmonar y nodule. Pleura: Normal. No pleural effusion. Heart and pericardium: Normal size heart with no pericardial effusion. Mediastinum and kimo: Subcentimeter bilateral hilar lymph nodes and calcified lymph nodes from prior granulomatous disease. No adenopathy. Vessels: Minimal atherosclerosis aorta. No aneurysm. Normal size pulmonary artery. Normal great vesse ls arising from the arch. Chest wall and lower neck: No soft tissue masses. Upper abdomen: Negative gallbladder. Visualized liver is normal. No hiatal hernia. Variant configurat ion of the celiac axis. Hepatic and splenic artery arise separately from the aorta. Osseous structures: No destructive process. CT/CT chest w con* [id number] IMPRESSION: 1. Stable subcentimeter calcified granulomata and noncalcified micronodules. N o new mass or enlarging nodule. 2. No pneumonia. 3. No adenopathy. 4. Mild atherosclerosis aorta.
== END 2023-08-30 07:53 | disposition home or self-care (01) ==
LOC: RAD 07:52
PROVIDERS: PCP Family Medicine; Visit Provider Family Medicine
DX: J84.10 Pulmonary fibrosis, unspecified (principal); I89.0 Lymphedema, not elsewhere classified
CPT/HCPCS: 71260; Q9967